=== PATIENT | male | born 1990 | race Asian ===

== ENCOUNTER 2024-02-02 05:21 | Emergency (ER) | payer MEDICAID, SELFPAY ==
--- NOTE | ~2024-02-02 | CT_ITS ---
Non-contrast Head CT History: Headache Technique: Axial non-contrast imaging of the brain was performed. Dose reduction technique was used on this scan by utilizing automated exposure control and iterative reconstruction technique. The dose -length product (DLP) was 756.67 mGy-cm. Findings: There is no evidence of intracranial hemorrhage, mass lesion, or acute infarct. Brain par enchyma appears normal. The ventricles and subarachnoid spaces are normal in size. The calvarium ap pears normal. The visualized paranasal sinuses and mastoid air cells are clear. Impression: No significant abnormality seen. Reviewed, dictated and finalized at location . [facility] Impression: No significant abnormality seen.
[2024-02-02 05:33] VITALS: BP 170/117; PULSE 70; RESP 25; O2SAT 99
[2024-02-02 05:34] VITALS: BP 170/117; PULSE 86; RESP 22; O2SAT 98
--- NOTE | 2024-02-02 05:43 | ECG_ITS ---
Test Date: 2024-02-02 05:57:43 Measurements Intervals Shirley Rate: 71 P: 37 CT: 141 QRS: 45 QRSD: 92 T: 11 QT: 363 QTc: 395 Interpretive Statements SINUS RHYTHM NONSPECIFIC T-WAVE ABNORMALITY No previous ECG available for comparison Electronically Signed On 02-02-2024 12:04:07 NAILER OPERATOR by Abiodun White M.D.
--- NOTE | 2024-02-02 05:58 | ED_ITS ---
HPI - Recheck/Abnormal Lab/Rx General Chief Complaint: Recheck/Abnormal Lab/Rx Stated Complaint: dizzy Time Seen by Provider: 02/02/24 05:31 History of Present Illness HPI narrative: This is a 33-year-old primarily St [place]ian speaking man presenting to the emergency room with chief complaint of dizziness and high blood pressure as well as a headache. Patient states that he has not been taking his blood pressure medications as he ran out of them but also is not able to tell me the name of his medications. He states that he has had headaches in the past but at 3:00 a.m. while he was at work he had worsening headache and dizziness he describes as feeling like he is going to pass out. No reported trauma or injuries. He is accompanied by family members and his boss for more who corroborates his story. No significant history of traumatic brain injuries or previous medical problems aside from high blood pressure. Denies any chest pain, shortness a breath, nausea, vomiting, abdominal pain, back pain. No weakness or fatigue. Was otherwise in his normal state of health. This headache resemble similar headaches he has had in the past. Related Data Allergies Allergy/AdvReac Type Severity Reaction Status Date / Time No Known Allergies Allergy Verified 02/02/24 05:41 Review of Systems 2 Review of Systems: As reviewed above in HPI Exam 2 Narrative: GENERAL: Mildly uncomfortable appearing but awake alert oriented answers all questions appropriately. HEAD: [Normocephalic, atraumatic.] EYES: [PERRLA and EOMI.] ENT: Nares clear, no rhinorrhea or epistaxis. Mucous membranes moist. NECK: Supple. CHEST: [Clear to auscultation. No respiratory distress.] HEART: [Regular rate and rhythm]. No murmur heard. [Normal peripheral pulses.] ABDOMEN: [Soft, nondistended], [nontender], [No rigidity or guarding] EXTREMITIES: Normal range of motion. [No edema.] SKIN: Warm, dry, no rash. NEURO: [No focal deficits]. Alert and oriented [x3.] Moves all extremities with symmetric strength. No ataxia in the arms or legs, no nystagmus or cranial nerve deficits. Extraocular movements are all intact. PSYCH: [Normal mood and affect.] Course Vital Signs Vital signs: Vital Signs Pulse Rate 70 02/02/24 05:33 Respiratory Rate 25 H 02/02/24 05:33 Blood Pressure 170/117 H 02/02/24 05:33 Pulse Oximetry 99 02/02/24 05:33 Pulse Rate 86 02/02/24 05:34 Respiratory Rate 22 H 02/02/24 05:34 Blood Pressure 170/117 H 02/02/24 05:34 Pulse Oximetry 98 02/02/24 05:34 Oxygen Delivery Room Air 02/02/24 05:34 MDM - Recheck/Abnormal Lab/Rx MDM Narrative Medical decision making narrative: 33-year-old male who is primarily bur me speaking requiring translation services for history and physical exam. He has a history of headaches as well as hypertension that is not currently being controlled as he ran out of his medications. Since 3:00 a.m. approximately 3 hours prior to arrival he had a worsening headache without any associated trauma, nausea, vomiting, vision changes, chest pain, shortness a breath. He otherwise has an unremarkable neurological assessment is awake alert oriented with normal strength and sensation throughout his arms and legs, no ataxia, no cranial nerve deficits. He is slightly hypertensive with a blood pressure 170 of 117 but no tachycardia, hypoxia or fever. Patient states this headache is worse than it has been previously. Given this consideration and his uncontrolled hypertension I did order a CT head to assess for any kind of intracranial pathology such as a subarachnoid hemorrhage or brain bleed otherwise. Suspicion is low. Laboratory studies were obtained and he was given symptom controlling medications for his headache including Compazine, Benadryl, fluid bolus, magnesium. He was reassessed and resting comfortably. Patient's workup shows no leukocytosis, anemia or concerning platelet levels. Electrolytes within normal limits, normal renal function panel. Normal glucose. Normal magnesium level. Patient's head CT shows no acute intracranial findings. Given patient's benign workup and clinical improvement after headache medications I believe he can be safe for discharge at this time. He does not know the name of his medications so I would not be able to refill him on his antihypertensives and I encouraged him to follow-up on outpatient basis with his primary care provider. Medical Records Attestation: I reviewed the patient's medical records. Lab Data Attestation: I reviewed the patient's lab results. 02/02/24 06:05 02/02/24 06:05 Labs: Lab Results 02/02/24 Range/Units 06:05 WBC 8.5 (4.5-10.0) K/mm3 RBC 5.02 (4.6-6.20) M/mm3 Hgb 14.6 (14.0-18.0) g/dL Hct 43.3 (42.0-52.0) % MCV 86.3 (80-100) fl MCH 29.1 (26-34) pg MCHC 33.7 (32-36) g/dl RDW 12.1 (11.5-14.5) % Plt Count 213 (150-375) k/mm3 MPV 10.1 (7.4-10.4) fl Immature Gran % (Auto) 0.6 H (0-0.5) % Neut % (Auto) 40.3 L (45.5-73.1) % Lymph % (Auto) 45.7 H (18.3-44.2) % Morehouse % (Auto) 6.1 (2.6-8.5) % Eos % (Auto) 6.6 H (0-4.4) % Baso % (Auto) 0.7 (0.2-1.2) % Lymph # (Auto) 3.89 H (0.9-3.2) K/mm3 Morehouse # (Auto) 0.5 (0.1-0.6) K/mm3 Eos # (Auto) 0.6 H (0-0.3) K/mm3 Baso # (Auto) 0.1 (0.0-0.1) K/mm3 Abs Immat Gran (auto) 0.05 H (0.00-0.031) K/mm3 Absolute Neuts (auto) 3.4 (1.3-6.7) K/mm3 Absolute Nucleated RBC 0.000 (0.0-0.012) K/mm3 Nucleated RBC % 0.0 (0.0-0.2) % Sodium 139 (137-145) mmol/L Potassium 3.6 (3.4-5.0) mmol/L Chloride 103 (98-107) mmol/L Carbon Dioxide 27 (22-30) mmol/L Anion Gap 9 (4-12) mmol/L BUN 13 (9-20) mg/dL Creatinine 0.70 (0.7-1.3) mg/dL Estim Creat Clear Calc Not Reportable Estimated GFR > 60 (59 - ) Glucose 116 H (65-110) mg/dL Calcium 10.6 H (8.4-10.2) mg/dL Magnesium 1.8 (1.6-2.3) mg/dL ECG Data EKG #1: Attestation: I personally reviewed and interpreted this ECG as follows: ECG completion date: 02/02/24 ECG completion time: 05:57 Prior ECG tracings: not available for review Interpretation: Regular rate and rhythm, no ST segment elevations, depressions. Isolated T-wave inversion in lead 3 but no baseline to compare to a no contiguous leads changes. No ectopy, normal QTC 395, QRS normal 92, NC interval normal 141. Overall normal sinus rhythm without any concern for acute ischemia Discharge Plan Discharge Clinical Impression: Headache, Hypertension, Dizziness Patient Language: Unknown Follow-up/Referrals: UNKNOWN,DOCTOR [Primary Care Provider] - Time of Disposition: 07:14
[2024-02-02] MEDS: PROCHLORPERAZINE EDISYLATE 10 MG/2 ML VIAL IV PUSH (06:07)
[2024-02-02] MEDS: SODIUM CHLORIDE 0.9% IV 1,000 ML 999 ML IV CONT (06:07)
[2024-02-02] MEDS: diphenhydrAMINE HCl INJ 50 MG/ML VIAL 25 MG IV PUSH (06:07)
[2024-02-02 06:19] LABS: Basophils Absolute Auto 0.1 K/mm3 (0.0-0.1); Basophils Percent Auto 0.7 % (0.2-1.2); Eosinophils Absolute Auto 0.6 K/mm3 (0-0.3); Eosinophils Percent Auto 6.6 % (0-4.4); Hematocrit 43.3 % (42.0-52.0); Hemoglobin 14.6 g/dL (14.0-18.0); Immature Granulocyte Absolute 0.05 K/mm3 (0.00-0.031); Immature Granulocyte Percent A 0.6 % (0-0.5); Lymphocytes Absolute Auto 3.89 K/mm3 (0.9-3.2); Lymphocytes Percent Auto 45.7 % (18.3-44.2); Mean Corpuscular HGB Conc 33.7 g/dl (32-36); Mean Corpuscular Hemoglobin 29.1 pg (26-34); Mean Corpuscular Volume 86.3 fl (80-100); Mean Platelet Volume 10.1 fl (7.4-10.4); Monocytes Absolute Auto 0.5 K/mm3 (0.1-0.6); Monocytes Percent Auto 6.1 % (2.6-8.5); Neutrophils Absolute Auto 3.4 K/mm3 (1.3-6.7); Neutrophils Percent Auto 40.3 % (45.5-73.1); Platelet Count Result 213 k/mm3 (150-375); Red Blood Count 5.02 M/mm3 (4.6-6.20); Red Cell Distribution Width 12.1 % (11.5-14.5); White Blood Count 8.5 K/mm3 (4.5-10.0)
[2024-02-02 06:29] LABS: Anion Gap 9 mmol/L (4-12); Blood Urea Nitrogen 13 mg/dL (9-20); Calcium 10.6 mg/dL (8.4-10.2); Carbon Dioxide 27 mmol/L (22-30); Chloride 103 mmol/L (98-107); Estimated Glomerular Filt Rate > 60; Glucose 116 mg/dL (65-110); Magnesium 1.8 mg/dL (1.6-2.3); Potassium 3.6 mmol/L (3.4-5.0); Sodium 139 mmol/L (137-145)
--- NOTE | 2024-02-02 06:38 | PC.NURSE ---
Patient speaks Anatoliy
[2024-02-02] MEDS: amLODIPine BESYLATE 10 MG TABLET PO (06:43)
[2024-02-02] MEDS: MAGNESIUM SULF 2 GM/WATER 50ML 2 GM/50 ML BAG IVPB (07:11)
[2024-02-02] MEDS: MECLIZINE HCL 25 MG TABLET PO (07:11)
[2024-02-02 07:15] VITALS: BP 141/85; PULSE 90; RESP 16; O2SAT 98
[2024-02-02 08:26] VITALS: BP 131/86; PULSE 118; RESP 22; O2SAT 98
[2024-02-02 09:44] VITALS: BP 128/99; PULSE 110; RESP 18; TEMP 37.1; O2SAT 98
--- OUTSIDE RECORDS SUMMARY | 2024-02-07 12:01 | XMS_ITS | Continuity of Care Document ---
Author Organization [facility] Address [address] [place] [address] Phone Care Team Providers Care Security Investigator Name Role Phone Priya Mcdonough PA-C Unavailable Unavailable Procedures Procedure Date Voided Encounter Advance Directives Directive Yes / No Effective Date File Name No Information Encounters Encounter Description Practice Location Reason(s) For Visit Diagnoses Date Provider Providers Copied on Encounter [facility] , [address], [place], [place], [id number], [place] tel:[phone] Tucker [facility] On [facility] No Information Sharonda Powers. [address], [place], [place], [address], [place]. tel:[phone] Family History Family Member Type Diagnosis Age At Onset No Information Payers Payer name Insurance type Covered libertarian ID Authoriza tion(s) No Information Social History Type Description Quantity Date Captured Comments Sex Male Smoking Status No Information Chief Complaint And Reason For Visit No Information Reason For Referral Reason For Referral No Information History Of Present Illness Encounter Date Complaint History Of Prese nt Illness No Information Functional Status Date Functional Assessmen t No Information Instructions Date Instruction Additional Infor mation No Information Assessments Type Assessment Date No Information Patient Care Teams Name Effective Dates (start - stop) Status Members No Information
--- OUTSIDE RECORDS SUMMARY | 2024-02-07 13:30 | XMS_ITS | Clinical Summary ---
Author Organization [facility] al Address [address] [place] [address] Care Team Providers Care Awning Hanger Supervisor Name Role Phone No, Physician Primary Care Provider [phone] Allergies No known active allergies Encounters Date Type Department Care Team Description 01/24/2024 10:43 PM STILL TENDER - 01/25/2024 1:03 AM STILL TENDER Emergency [facility] Emergency Department [address] [place] [address] Joss Buitrago MD Acute nonintractable headache, unspecified headache type (Primary Dx) Discharge Disposition: Discharge to home or self care from Last 3 Months Social History Tobacco Use Types Packs/Day Years Used Date Smoking Tobacco: Never Assessed Personal Safety Answer Date Recorded Have you ever been in or are you currently in a harmful physical or emotional relationship or is someone making you feel afraid or unsafe? Denies 01/24/2024 Sex and Gender Information Value Date Recorded Sex Assigned at Not on file Legal Sex Male 8:06 PM STILL TENDER Gender Identity Not on file Sexual Orientation Not on file Last Filed Vital Signs Vital Sign Reading Time Taken Comments Blood Pressure 123/86 01/24/2024 9:41 PM STILL TENDER Pulse 86 01/24/2024 9:41 PM STILL TENDER Temperature 37.1 ??C (98.8 ??F) 01/24/2024 8:09 PM CS T Respiratory Rate 16 01/24/2024 9:41 PM STILL TENDER Oxygen Saturation 96% 01/24/2024 9:41 PM STILL TENDER Inhaled Oxygen Concentration - - Weight 70 kg (154 lb 5.2 oz) 01/24/2024 8:09 PM STILL TENDER Height 162.6 cm (5' 4 ) 01/24/2024 8:09 PM STILL TENDER Body Mass Index 26.49 01/24/2024 8:09 PM STILL TENDER Plan of Treatment Health Maintenance Due Date Last Done Comments Depression Screening 1992 Hepatitis C Screening 1992 Varicella Vaccines (1 of 2 - 13+ 2-dose series) 02/18/2005 Regular Well Visit/Exam 18-64 02/18/2010 DTaP/Tdap/Td Vaccine (1 - Tdap) 07/17/2023 Influenza Vaccine (#1) 2023 07/16/2023 HPV Vaccines Aged Out No longer eligi ble based on patient's age to complete this topic Pneumococcal vaccine <65 Aged Out No longer eligible based on patient's age to complete this topic Insurance [facility] Care Teams Awning Hanger Supervisor Relationship Specialty Start Date End Date No, Physician PCP - General 01/24/24
--- OUTSIDE RECORDS SUMMARY | 2024-02-07 13:30 | XMS_ITS | Continuity of Care Document ---
Author Organization [facility] Address [address] [place] [address] Phone Care Team Providers Care Icicle Machine Operator Name Role Phone Priya Mcdonough PA-C Unavailable Unavailable Procedures Procedure Date Voided Encounter Advance Directives Directive Yes / No Effective Date File Name No Information Encounters Encounter Description Practice Location Reason(s) For Visit Diagnoses Date Provider Providers Copied on Encounter [facility] , [address], [place], [place], [address], [place] tel:[phone] [facility] [place] No Information Sharonda Powers. [address], [place], [place], [address], [place]. tel:[phone] Family History Family Member Type Diagnosis Age [...]
--- OUTSIDE RECORDS SUMMARY | 2024-02-07 13:31 | XMS_ITS | Encounter Summary ---
Author Organization [facility] Address [address] [place] [address] Care Team Providers Care General Labor Forklift Operator Name Role Phone No, Physician Primary Care Provider [phone] Reason for Visit * Reason Comments Headache Encounter Details Date Type Department Care Team (Late st Contact Info) Description 01/24/2024 10:43 PM BRASS PICKLER - 01/25/2024 1:03 AM BRASS PICKLER Emergency [facility] Emergency Department [address] [place] [address] Joss Buitrago MD [address] [facility] [address] [place], [place] [id number] Acute nonintractable headache, unspecified headache type (Primary Dx) Discharge Disposition: Discharge to home or self care Social History Tobacco Use Types Packs/Day Years Used Date Smoking Tobacco: Never Assessed Personal Safety Answer Date Recorded Have you ever been in or are you currently in a harmful physical or emotional relationship or is someone making you feel afraid or unsafe? Denies 01/24/2024 Sex and Gender Information Value Date Recorded Sex Assigned at Not on file Legal Sex Male 8:06 PM BRASS PICKLER Gender Identity Not on file Sexual Orientation Not on file documented as of this encounter Last Filed Vital Signs Vital Sign Reading Time Taken Comments Blood Pressure 123/86 01/24/2024 9:41 PM BRASS PICKLER Pulse 86 01/24/2024 9:41 PM BRASS PICKLER Temperature 37.1 ??C (98.8 ??F) 01/24/2024 8:09 PM CS T Respiratory Rate 16 01/24/2024 9:41 PM BRASS PICKLER Oxygen Saturation 96% 01/24/2024 9:41 PM BRASS PICKLER Inhaled Oxygen Concentration - - Weight 70 kg (154 lb 5.2 oz) 01/24/2024 8:09 PM BRASS PICKLER Height 162.6 cm (5' 4 ) 01/24/2024 8:09 PM BRASS PICKLER Body Mass Index 26.49 01/24/2024 8:09 PM BRASS PICKLER documented in this encounter Discharge Instructions * Discharge Instructions* Betty Walker MD - 01/25/2024 12:39 AM BRASS PICKLER You were seen here for a headache. Take tylenol 650mg and motrin 600mg (both [id number] at your pharmacy) every 6 hours for pain and drink plenty of fluids. If you develop numbness, tingling, loss of consciousness, weakness or slurred speech please return to the ED. Otherwise follow up with your primary care doc for your headaches, if you do not have one please use one from the list below. S PICKLER S PICKLER documented in this encounter Discharge Disposition Disposition Code Departure Means Destination Comment s Discharge to home or self care documented in this encounter ED Notes * Francisca Escalante RN - 01/24/2024 11:45 PM CST Bed: ED3-11L Expected date: Expected time: Means of arrival: Comments: Francisca Kumar RN 01/24/24 0335 S PICKLER * Betty Walker MD - 01/24/2024 10:43 PM CST HPI Chief Complaint Patient presents with ??? Headache HPI 33yoM with HTN here for LINDER beginning this morning. Says he gets frequent headaches that typically resolve on own in few hours but today's episode has persisted. Recently moved from [facility] two months ago. Concerned he may have brain tumor. Denies any fevers, chills, weight loss. Patient History: There are no active problems to display for this patient. No past medical history on file. No past surgical history on file. No family history on file. Social History Tobacco Use ??? Smoking status: Not on file ??? Smokeless tobacco: Not on file Substance and Sexual Activity ??? Alcohol use: Not on file ??? Drug use: Not on file ??? Sexual activity: Not on file Social History Social History Narrative ??? Not on file Review of Systems Review of Systems All other systems reviewed and are negative. Physical Exam ED Triage Vitals [01/24/242008] Temp Pulse Resp BP SpO2 37.1 ??C (98.8 ??F) 85 17 149/87 98 % Temp src Heart Rate Source Patient Position BP Location FiO2 (%) Oral -- -- -- -- Height Height Method Weight Weight Method 1.626 m (5' 4 ) Stated 70 kg (154 lb 5.2 oz) Stated Physical Exam Constitutional: General: He is not in acute distress. Appearance: He is not ill-appearing. HENT: Head: Normocephalic and atraumatic. Mouth/Throat: Pharynx: Oropharynx is clear. Eyes: General: No visual field deficit or scleral icterus. Pulmonary: Effort: Pulmonary effort is normal. No respiratory distress. Abdominal: General: Abdomen is flat. Musculoskeletal: General: No deformity. Skin: General: Skin is warm and dry. Neurological: General: No focal deficit present. Mental Status: He is alert and oriented to person, place, and time. Cranial Nerves: Cranial nerves 2-12 are intact. No dysarthria or facial asymmetry. Sensory: Sensation is intact. No sensory deficit. Motor: Motor function is intact. No weakness or tremor. Psychiatric: Behavior: Behavior normal. [facility] Medical Decision Making 33yoM with HTN here for headache. Normotensive on arrival. Occipital headache likely migraine. Willdefer labs/imaging, counseled on warning signs of malignancy. Will plan for symptomatic relief & discharge with referral to PCP. Risk OTC drugs. Attending Summary of Care ED Course as of 01/25/24 0040 Time: 01/23 7561 Comment: Attg note: Here with linder since this am, worsening. Happens frequently and started 2 mos ago. Back of head, severe, no aura, no ams, no fever, some dizziness from pain. Hx htn (bp good here). Didn't take any otc. By: Joss Buitrago MD Time: 01/24 39 Comment: Patient with improvement in headache. Medically stable for discharge. By: Betty Walker MD Acute nonintractable headache, unspecified headache type Betty Walker MD Resident 01/24/24 [id number] Cosigned by Joss Buitrago MD at 01/25/2024 1:45 AM BRASS PICKLER S PICKLER S PICKLER Associated attestation - Joss Buitrago MD - 01/25/2024 1:45 AM BRASS PICKLER I have seen and examined the patient on 01/24/2024. I agree with the findings and plan of care as documented in the resident's note. * Francisca Escalante RN - 01/24/2024 10:43 PM CST Bed: ED3-02 Expected date: Expected time: Means of arrival: Comments: Francisca Wiley RN 01/24/24 [id number] S PICKLER * Chanda Bynum RN - 01/24/2024 8:12 PM CST Pt presents to the ED with c/o headache that began this AM and has gotten worse. Pt reports high blood pressure but is not on medications. Patient recently moved here from [facility]. Denies CP, SOB, N/V S PICKLER documented in this encounter Plan of Treatment Not on file documented as of this encounter Visit Diagnoses Diagnosis Acute nonintractable headache, unspecified headache type- Primary documented in this encounter Administered Medications Inactive Administered Medications - up to 3 most recent administrations Medication Order MAR Action Action Date Dose Rate Site acetaminophen (TYLENOL) tablet 1,000 mg 1,000 mg, oral, Once, On 01/24/24 at 2325, For 1 dose Given 01/24/2024 11:29 PM BRASS PICKLER 1,000 mg ketorolac (TORADOL) 15 mg/mL injection 15 mg 15 mg, intramuscular, Once, On 01/24/24 at 2333, For 1 dose, Indications: PainIndications:Pain Given 01/24/2024 11:33 PM BRASS PICKLER 15 mg Right Deltoid documented in this encounter Active and Recently Administered Medications Times are shown in BRASS PICKLER. Scheduled Medication Order 01/23/2024 01/24/2024 01/25/2024 acetaminophen (TYLENOL) tablet 1,000 mg (COMPLETED) 1,000 mg, oral, Once, On 01/24/24 at 2325, For 1 dose 2329 (Given - Provider: Alysia Reis, JAZZY) ketorolac (TORADOL) 15 mg/mL injection 15 mg (COMPLETED) 15 mg, intramuscular, Once, On 01/24/24 at 2333, For 1 dose, Indications: Pain 2333 (Given - Provider: Alysia Reis, JAZZY) documented in this encounter Orders Medications Ordered That Damien ht Not Have Been Administered Count Last Ordered Date First Ordered Date ketorolac (TORADOL) 15 mg/mL injection 15 mg 1 01/24/2024 documented in this encounter Care Teams General Labor Forklift Operator Relationship Specialty Start Date End Date No, Physician PCP - General 01/24/24 documented as of this encounter
--- OUTSIDE RECORDS SUMMARY | 2024-02-07 13:31 | XMS_ITS | Referral Summary ---
Author Organization [facility] al Address [address] [place] [address] Care Team Providers Care Soda Fountain Operator Name Role Phone No, Physician Primary Care Provider [phone] Encounters Date Type Department Care Team Description 01/24/2024 10:[address]TER - 01/25/2024 1:[address] Emergency [facility] Emergency Department [address] [place] [address] Joss Buitrago MD Acute nonintractable headache, unspecified headache type (Primary Dx) Discharge Disposition: Discharge to home or self care from Last 3 Months Allergies No known active allergies Social History Tobacco Use Types Packs/Day Years Used Date Smoking Tobacco: Never Assessed Personal Safety Answer Date Recorded Have you ever been in or are you currently in a harmful physical or emotional relationship or is someone making you feel afraid or unsafe? Denies 01/24/2024 Sex and Gender Information Value Date Recorded Sex Assigned at Not on file Legal Sex Male 8:[address] Gender Identity Not on file Sexual Orientation Not on file Last Filed Vital Signs Vital Sign Reading Time Taken Comments Blood Pressure 123/86 01/24/2024 9:[address] Pulse 86 01/24/2024 9:[address] Temperature 37.1 ??C (98.8 ??F) 01/24/2024 8:09 PM CS T Respiratory Rate 16 01/24/2024 9:[address] Oxygen Saturation 96% 01/24/2024 9:[address] Inhaled Oxygen Concentration - - Weight 70 kg (154 lb 5.2 oz) 01/24/2024 8:[address] Height 162.6 cm (5' 4 ) 01/24/2024 8:[address] Body Mass Index 26.49 01/24/2024 8:[address] Plan of Treatment Not on file Insurance [facility] Care Teams Soda Fountain Operator Relationship Specialty Start Date End Date No, Physician PCP - General 01/24/24
== END 2024-02-02 09:47 | disposition home or self-care (01) ==
LOC: ANHED 05:52
PROVIDERS: Emergency Provider Student in an Organized Health Care Education/Training Program
DX: R42 Dizziness and giddiness (principal); I10 Essential (primary) hypertension; R51.9 Headache, unspecified; T46.5X6A Underdosing of other antihypertensive drugs, initial encounter; Z91.138 Patient's unintentional underdosing of medication regimen for other reason; R94.31 Abnormal electrocardiogram [ECG] [EKG]
CPT/HCPCS: 36415; 70450; 80048; 83735; 85025; 93005; 96365; 96366; 96375; 99284; A9270; J0780; J1200; J3475; J7030